=== PATIENT | female | born 1940 | race American Indian/Alaskan Native ===

== ENCOUNTER 2022-01-15 11:40 | Inpatient (IN) | payer MEDICARE ==
--- NOTE | 2022-01-15 13:00 | Cat Scan Report ---
CT HEAD WITHOUT CONTRAST INDICATION / CLINICAL INFORMATION: blunt head injury. TECHNIQUE: All CT scans at this location are performed using CT dose reduction for ALARA by means of automated e xposure control. COMPARISON: None available. FINDINGS: HEMORRHAGE: No evidence of intracranial hemorrhage or extra-axial fluid collection. EXTRA-AXIAL SPACES: Cortical sulci and sylvian fissures are enlarged reflecting a degree of parenchym al volume loss which is prominent even given the patient's age of 81 years. Basilar cisterns have an unremarkable appearance. VENTRICULAR SYSTEM: The third and lateral ventricles are enlarged out of proportion to the cortical s ulci. This probably reflects the presence of central greater than cortical atrophy. Profound temporal lobe atrophy is noted bilaterally (Duara grade 4). CEREBRAL PARENCHYMA: Extensive periventricular, deep white matter and subcortical white matter lucenc y is observed. This is probably secondary to advanced microvascular ischemic change. There is no yazmin cation of recent infarction. There is a remote small deep infarction in the medial aspect of the left thalamus. Bilateral physiological basal ganglia calcifications are incidentally noted. MIDLINE SHIFT OR HERNIATION: There is no mass effect. CEREBELLUM / BRAINSTEM: Brainstem and cerebellum have an unremarkable appearance. MIDLINE STRUCTURES:No abnormalities of the pituitary gland or pineal region are observed INTRACRANIAL VESSELS:Calcified atherosclerotic plaque is present along the course of the cavernous se gments of both internal carotid arteries. Similar findings are seen at the distal vertebral arteries. CRANIOCERVICAL JUNCTION:No abnormality ORBITS: visualized portions of the orbits have an unremarkable appearance. SOFT TISSUES of HEAD: No significant abnormality. CALVARIUM: Evaluation of bone windows reveals no abnormalities. PARANASAL SINUSES / MASTOID AIR CELLS: Paranasal sinuses are free from inflammatory mucosal disease. Mastoid air cells are normally pneumatized. IMPRESSION: 1. Prominent central greater than cortical atrophy and advanced microvascular ischemic change. 2. No acute intracranial abnormality. CT CERVICAL SPINE WITHOUT CONTRAST INDICATION / CLINICAL INFORMATION: blunt head injury. TECHNIQUE: Axial CT images were obtained through the cervical spine. Sagittal and coronal reformatted images wer e produced. All CT scans at this location are performed using CT dose reduction for ALARA by means of automated exposure control. COMPARISON: None available. FINDINGS: POSTOPERATIVE CHANGE:none ALIGNMENT: Patient's head is tilted towards the left. Loss of the normal cervical lordosis is noted. No additional abnormalities of alignment are identified. VERTEBRAE: No indication of fracture or bone destruction. DISC SPACES: Loss of disc height is a prominent finding at the C4-5, C5-6, C6-7 and C7-T1 levels. DEGENERATIVE CHANGES: In addition to widespread disc desiccation there is multifocal uncovertebral ar thropathy. Mild facet arthritic changes are observed at the C6-7 level on the left. Uncovertebral art hropathy contributes to widespread neuroforaminal stenosis throughout cervical region. Central spinal canal appears to be adequately maintained. CRANIOCERVICAL JUNCTION:No significant abnormality. Incidental note is made of failure of fusion of t he posterior arch of C1 vertebrae. This is of no clinical concern. SPINAL CANAL: Central spinal canal is adequately maintained throughout. PARASPINAL SOFT TISSUES: No significant abnormality. ADDITIONAL FINDINGS: Calcification of the nuchal ligament is observed. This is most pronounced at the level of the C5-C6 and C7 spinous processes. LUNG APICES: No significant abnormality of visualized lungs. IMPRESSION: 1. Widespread uncovertebral arthropathy and disc desiccation with associated bilateral neuroforaminal stenosis. 2. No indication of central canal stenosis. 3. No indication of fracture or traumatic subluxation. Signer Name: Ronak Churchill MD Signed: 01/15/2022 12:55 PM Workstation Name: [id number]
[2022-01-15 13:28] LABS: Basophils % (Auto) 0.4 % (0.0-1.8); Eosinophils % (Auto) 0.1 % (0.0-4.3); Hematocrit 36.5 % (30.3-42.9); Hemoglobin 11.9 gm/dl (10.1-14.3); Lymphocytes # (Auto) 1.1 K/mm3 (1.2-5.4); Lymphocytes % (Auto) 11.1 % (13.4-35.0); Mean Corpuscular HGB Conc 33 % (30-34); Mean Corpuscular Volume 84 fl (79-97); Monocytes # (Auto) 0.8 K/mm3 (0.0-0.8); Monocytes % (Auto) 7.7 % (0.0-7.3); Platelet Count 406 K/mm3 (140-440); Red Blood Count 4.33 M/mm3 (3.65-5.03); Red Cell Distribution Width 14.6 % (13.2-15.2)
--- NOTE | 2022-01-15 13:58 | XRay Report ---
BILATERAL HIP 3 VIEW(S) INDICATION / CLINICAL INFORMATION: fall, pain COMPARISON: None available. FINDINGS: BONES / JOINT(S): No acute fracture or subluxation. Moderately advanced right and mild left hip degen erative arthrosis SOFT TISSUES: No significant abnormality. ADDITIONAL FINDINGS: None. IMPRESSION: 1. Bilateral hip osteoarthrosis. Signer Name: Gabriel Will MD Signed: 01/15/2022 1:53 PM Workstation Name: [email or web address]
--- NOTE | 2022-01-15 14:01 | XRay Report ---
CHEST 1 VIEW INDICATION / CLINICAL INFORMATION: dizziness. COMPARISON: None available. FINDINGS: SUPPORT DEVICES: None. HEART / MEDIASTINUM: No significant abnormality. LUNGS / PLEURA: No significant pulmonary or pleural abnormality. No pneumothorax. ADDITIONAL FINDINGS: No significant additional findings. IMPRESSION: 1. No acute findings. Signer Name: Gabriel Will MD Signed: 01/15/2022 1:57 PM Workstation Name: [id number]
[2022-01-15 14:11] LABS: Bilirubin,Urine NEG (Negative); Blood,Urine SM (Negative); Color,Urine Yellow (Yellow); Mucus,Urine FEW /HPF; Urobilinogen,Urine < 2.0 mg/dL (<2.0); WBC,Urine < 1.0 /HPF (0.0-6.0)
[2022-01-15 16:13] LABS: Alanine Aminotransferase 24 units/L (7-56); Albumin 4.1 g/dL (3.9-5); Blood Urea Nitrogen 13 mg/dL (7-17); Calcium 9.3 mg/dL (8.4-10.2); Hemolysis Index 6
[2022-01-15 16:17] LABS: BUN/Creatinine Ratio 19
[2022-01-15] MEDS ORDERED: ASPIRIN 81 MG TAB CHEW PO ONE (16:33)
[2022-01-15] MEDS ORDERED: SODIUM CHLORIDE 0.9% 1000 ML 1,000 ML IV ONE (16:34)
[2022-01-15 16:42] LABS: Chol/HDL Ratio 2.86 %; HDL Cholesterol 44 mg/dL (40-59); LDL Cholesterol,Direct 63 mg/dL (50-130)
[2022-01-15] MEDS ORDERED: HEPARIN 10,000 UNITS/10 ML VIAL IV PRN (17:22)
[2022-01-15] MEDS ORDERED: HEPARIN 10,000 UNITS/10 ML VIAL IV ONE (17:22)
--- NOTE | 2022-01-15 17:58 | Emergency Department Report ---
ED General Adult HPI - General Chief complaint: Fall Stated complaint: FALL Time Seen by Provider: 01/15/22 12:02 Source: EMS Mode of arrival: Stretcher Limitations: Altered Mental Status - History of Present Illness Initial comments: patient presents from [place] 10/01 being found on the ground. Unclear how patient ended up there or if she fell. Patient is pleasantly demented and is AAO x 1 (to person; here and @ baseline). Patient states she does not know how she fell; denies any MANZANO, dizziness, CP, SOB, abd pain, back pain, numbness, weakness, pain in her extremities. Patient is not a reliable historian. Severity scale (0 -10): 0 - Related Data Allergies Allergy/AdvReac Type Severity Reaction Status Date / Time No Known Allergies Allergy Unverified 01/15/22 12:01 ED Review of Systems ROS: Stated complaint: FALL Other details as noted in HPI Comment: All other systems reviewed and negative Constitutional: denies: chills, fever ED Past Medical Hx - Past Medical History Hx Hypertension: Yes Hx Diabetes: Yes Hx Dementia: Yes - Social History Smoking Status: Never Smoker ED Physical Exam - General Limitations: Altered Mental Status General appearance: alert, in no apparent distress - Head Head exam: Present: atraumatic, normocephalic - Eye Eye exam: Present: PERRL, EOMI - ENT ENT exam: Present: mucous membranes moist, other (airway patent) - Neck Neck exam: Present: other (painless full ROM; non tender; unable to clear by NEXUS crtieria 10/01 AMS) - Respiratory Respiratory exam: Present: other (good air entry, nml I:E, CTAB, no use of RAYMOND) - GI/Abdominal GI/Abdominal exam: Present: soft, normal bowel sounds. Absent: distended, tenderness - Extremities Exam Extremities exam: Present: other (full ROM without tenderness, ecchymosis or edema in all 4 extremities; pelvis stable) - Back Exam Back exam: Present: full ROM. Absent: tenderness - Neurological Exam Neurological exam: Present: alert, CN II-XII intact, other (GCS 14/15 ([id number])). Absent: motor sensory deficit - Skin Skin exam: Present: warm, normal color ED Course Vital Signs 01/15/22 01/15/22 01/15/22 12:00 12:03 12:15 Temperature 98.6 F Pulse Rate 102 H 108 H 94 H Respiratory 16 11 L 22 Rate Blood Pressure 138/77 Blood Pressure 132/82 [Right] O2 Sat by Pulse 98 Oximetry 01/15/22 01/15/22 01/15/22 12:18 12:19 13:46 Temperature 98.9 F Pulse Rate 99 H Respiratory 18 18 Rate Blood Pressure 154/77 Blood Pressure 138/77 [Right] O2 Sat by Pulse 99 100 Oximetry 01/15/22 01/15/22 01/15/22 14:01 14:15 14:31 Temperature Pulse Rate 97 H 77 76 Respiratory 14 17 15 Rate Blood Pressure 139/72 132/81 142/75 Blood Pressure [Right] O2 Sat by Pulse 97 97 98 Oximetry 01/15/22 01/15/22 01/15/22 14:45 15:01 15:15 Temperature Pulse Rate 83 84 82 Respiratory 19 19 18 Rate Blood Pressure 141/79 146/84 158/78 Blood Pressure [Right] O2 Sat by Pulse 99 98 98 Oximetry 01/15/22 01/15/22 01/15/22 15:31 15:45 16:15 Temperature Pulse Rate 85 89 87 Respiratory 18 17 18 Rate Blood Pressure 152/84 157/87 155/76 Blood Pressure [Right] O2 Sat by Pulse 98 99 99 Oximetry 01/15/22 16:31 Temperature Pulse Rate 97 H Respiratory 13 Rate Blood Pressure 147/79 Blood Pressure [Right] O2 Sat by Pulse 98 Oximetry ED Medical Decision Making - Lab Data Result diagrams: 01/15/22 12:25 01/15/22 12:25 Laboratory Tests 01/15/22 01/15/22 01/15/22 12:25 12:25 Unknown WBC 10.3 RBC 4.33 Hgb 11.9 Hct 36.5 MCV 84 MCH 28 MCHC 33 RDW 14.6 Plt Count 406 Lymph % (Auto) 11.1 L [place] % (Auto) 7.7 H Eos % (Auto) 0.1 Baso % (Auto) 0.4 Lymph # (Auto) 1.1 L [place] # (Auto) 0.8 Eos # (Auto) 0.0 Baso # (Auto) 0.0 Seg Neutrophils % 80.7 H Seg Neutrophils # 8.3 H Sodium 141 Potassium 3.2 L Chloride 102.5 Carbon Dioxide 24 Anion Gap 18 BUN 13 Creatinine 0.7 Estimated GFR > 60 BUN/Creatinine Ratio 19 Glucose 117 H Calcium 9.3 Total Bilirubin 0.40 AST 106 H ALT 24 Alkaline Phosphatase 65 Total Creatine Kinase 3093 H Troponin T 1.160 H* Total Protein 6.5 Albumin 4.1 Albumin/Globulin Ratio 1.7 Triglycerides 78 Cholesterol 126 LDL Cholesterol Direct 63 HDL Cholesterol 44 Cholesterol/HDL Ratio 2.86 Urine Color Yellow Urine Turbidity Clear Urine pH 7.0 Ur Specific [place] 1.017 Urine Protein 30 mg/dl Urine Glucose (UA) Neg Urine Ketones 20 Urine Blood Sm Urine Nitrite Neg Urine Bilirubin Neg Urine Urobilinogen < 2.0 Ur Leukocyte Esterase Neg Urine WBC (Auto) < 1.0 Urine RBC (Auto) 4.0 Urine Mucus Few EKG: HR 96, SR, nml LA, narrow QRS, prolonged QTc to 536, no significant ST changes in contiguous leads CXR: no acute cardiopulmonary process XR hips bilat w AP pelvis: no fracture or dislocation CT head: no acute intracranial process CT C-spine: no fracture or subluxation. - Medical Decision Making Diff dz: - possibly 2/2 heat exhaustion. Elevated troponin likely 2/2 NSTEMI vs rhabdomyolysis (latter favored). Dr. Rivera (scrub nurse) consulted. Recommends heparin gtt for now. Will see patient. Received heparin bolus then gtt, NS @ 125 ml/hr Critical care attestation.: If time is entered above; I have spent that time in minutes in the direct care of this critically ill patient, excluding procedure time. ED Disposition Clinical Impression: Elevated troponin, Fall Disposition: ADMITTED INPATIENT Is pt being admited?: Yes Does the pt Need Aspirin: No Condition: Stable Time of Disposition: 17:00 (Patient admitted to Dr. Puckett. Sign out was given by me to the admitting physician)
[2022-01-15] MEDS ORDERED: HEPARIN/ 0.45% NACL DRIP 25,000 UNIT/500 ML BAG IV SCH (18:00)
[2022-01-15 18:56] LABS: INR 0.97 (0.87-1.13)
[2022-01-15 18:57] LABS: Partial Thromboplastin Time 28.1 Sec. (24.2-36.6)
[2022-01-15] MEDS ORDERED: oxyCODONE /ACETAMINOPHEN 5-325MG TAB PO PRN (23:52)
[2022-01-15] MEDS ORDERED: METOCLOPRAMIDE 10 MG/2 ML INJ IV PRN (23:52)
[2022-01-15] MEDS ORDERED: ACETAMINOPHEN 325 MG TAB PO PRN (23:52)
[2022-01-15] MEDS ORDERED: ONDANSETRON 4 MG/2 ML INJ IV PRN (23:52)
[2022-01-15] MEDS ORDERED: MORPHINE 2 MG/1 ML INJ IV PRN (23:52)
[2022-01-16 02:53] LABS: Basophils # (Auto) 0.1 K/mm3 (0.0-0.1); Basophils % (Auto) 0.6 % (0.0-1.8); Eosinophils # (Auto) 0.1 K/mm3 (0.0-0.4); Eosinophils % (Auto) 0.7 % (0.0-4.3); Hematocrit 33.3 % (30.3-42.9); Hemoglobin 10.9 gm/dl (10.1-14.3); Lymphocytes # (Auto) 2.3 K/mm3 (1.2-5.4); Lymphocytes % (Auto) 23.7 % (13.4-35.0); Mean Corpuscular HGB Conc 33 % (30-34); Mean Corpuscular Volume 84 fl (79-97); Monocytes # (Auto) 0.9 K/mm3 (0.0-0.8); Monocytes % (Auto) 8.7 % (0.0-7.3); Platelet Count 358 K/mm3 (140-440); Red Blood Count 3.98 M/mm3 (3.65-5.03); Red Cell Distribution Width 14.7 % (13.2-15.2)
[2022-01-16 03:14] LABS: Alanine Aminotransferase 29 units/L (7-56); Albumin 3.5 g/dL (3.9-5); Blood Urea Nitrogen 11 mg/dL (7-17); Calcium 8.2 mg/dL (8.4-10.2); Hemolysis Index 1
[2022-01-16 03:22] LABS: BUN/Creatinine Ratio 18
[2022-01-16] MEDS ORDERED: POTASSIUM CHLORIDE ER 20 MEQ TAB PO ONE (04:01)
--- NOTE | 2022-01-16 06:38 | History and Physical Report ---
History of Present Illness Date of examination: 01/15/22 Date of admission: 01/15/22 Chief complaint: Ground-level fall few hours ago History of present illness: 81-year-old female with history of hypertension diabetes and early dementia was found on floor in the residential. Patient was sent from residential for evaluation of fall. No chest pain patient was screened for fractures and was negative. Patient being admitted for higher creatinine level with elevated troponin. ER physician started the patient on IV heparin for possible non- STEMI. CK was 3000 and troponin was appropriately elevated. Repeat CKs were ordered and heparin was discontinued. Patient being admitted for rhabdomyolysis and IV fluids. Generalized pain all over about 4-5 on a scale of 1-10. No chest pain. - Past Medical History --Hypertension: Yes --Diabetes: Yes --Dementia: Yes - surgical history -- unavailable - Social History --Smoking Status: Never Smoker - family history --unavailable Review of Systems ROS: Stated complaint: FALL Other details as noted in HPI Comment: All other systems reviewed and negative Constitutional: denies: chills, fever Medications and Allergies Allergies Allergy/AdvReac Type Severity Reaction Status Date / Time No Known Allergies Allergy Unverified 01/15/22 12:01 Active Meds: Active Medications Acetaminophen (Acetaminophen 325 Mg Tab) 650 mg PO Q4H PRN PRN Reason: Pain MILD(1-3)/Fever >100.5/MANZANO Famotidine (Famotidine 10 Mg Tab) 10 mg PO BID LEANNE Heparin Sodium (Porcine) (Heparin 10,000 Units/10 Ml Vial) 2,400 unit 40 unit/kg (2400 unit) IV Q6H PRN PRN Reason: Anti-Xa Assay < 0.1 units/ml Last Admin: 01/16/22 03:54 Dose: 2,400 unit Heparin Sodium/Sodium Chloride (Heparin/ 0.45% Nacl-25,000 Unit/500 Ml) 25,000 unit in 500 mls @ 16 mls/hr IV TITRATE LEANNE; Protocol Last Titration: 01/16/22 03:47 Dose: 950 units/hr, 19 mls/hr Sodium Chloride (Nacl 0.9% 1000 Ml) 1,000 mls @ 100 mls/hr IV DIRECT LEANNE Metoclopramide HCl (Metoclopramide 10 Mg/2 Ml Inj) 10 mg IV Q6H PRN PRN Reason: Nausea And Vomiting Morphine Sulfate (Morphine 2 Mg/1 Ml Inj) 2 mg IV Q4H PRN PRN Reason: Pain, Moderate (4-6) Ondansetron HCl (Ondansetron 4 Mg/2 Ml Inj) 4 mg IV Q8H PRN PRN Reason: Nausea And Vomiting Oxycodone/Acetaminophen (Oxycodone /Acetaminophen 5-325mg Tab) 1 tab PO Q6H PRN PRN Reason: Pain, Moderate (4-6) Potassium Chloride (Potassium Chloride Er 20 Meq Tab) 40 meq PO ONCE LEANNE Stop: 01/16/22 08:01 Sodium Chloride (Sodium Chloride 0.9% 10 Ml Flush Syringe) 10 ml IV BID LEANNE Sodium Chloride (Sodium Chloride 0.9% 10 Ml Flush Syringe) 10 ml IV PRN PRN PRN Reason: LINE FLUSH Exam - Constitutional Vitals: Temp Pulse Resp BP Pulse Ox 98.9 F 78 18 138/78 100 01/15/22 12:18 01/16/22 04:00 01/16/22 04:00 01/16/22 04:00 01/16/22 04:00 General appearance: Present: no acute distress, well-nourished - EENT Eyes: Present: PERRL ENT: hearing intact, clear oral mucosa - Neck Neck: Present: supple, normal ROM - Respiratory Respiratory effort: normal Respiratory: bilateral: CTA - Cardiovascular Heart rate: 98 Rhythm: regular Heart Sounds: Present: S1 & S2. Absent: rub, click - Extremities Extremities: pulses symmetrical, No edema Peripheral Pulses: within normal limits - Abdominal General gastrointestinal: Present: soft, non-tender, non-distended, normal bowel sounds Female genitourinary: Present: normal - Integumentary Integumentary: Present: clear, warm, dry - Musculoskeletal Musculoskeletal: gait normal, strength equal bilaterally - Psychiatric Psychiatric: appropriate mood/affect, intact judgment & insight - Neurologic Neurologic: CNII-XII intact, moves all extremities - Allied Health Allied health notes reviewed: nursing, case management HEART Score - HEART Score History: Slightly suspicious Age: > 65 Risk factors: 1-2 risk factors Troponin: Troponin T 0.792 ng/mL (0.00-0.029) H* D 01/16/22 00:11 Troponin: 1-3x normal limit - Critical Actions Critical Actions: 0-3 pts:0.9-1.7%risk of adverse cardiac event.Candidate for discharge Results - Labs CBC & Chem 7: 01/16/22 02:17 01/16/22 02:17 Labs: Laboratory Last Values WBC 9.8 K/mm3 (4.5-11.0) 01/16/22 02:17 RBC 3.98 M/mm3 (3.65-5.03) 01/16/22 02:17 Hgb 10.9 gm/dl (10.1-14.3) 01/16/22 02:17 Hct 33.3 % (30.3-42.9) 01/16/22 02:17 MCV 84 fl (79-97) 01/16/22 02:17 MCH 27 pg (28-32) L 01/16/22 02:17 MCHC 33 % (30-34) 01/16/22 02:17 RDW 14.7 % (13.2-15.2) 01/16/22 02:17 Plt Count 358 K/mm3 (140-440) 01/16/22 02:17 Lymph % (Auto) 23.7 % (13.4-35.0) 01/16/22 02:17 Price % (Auto) 8.7 % (0.0-7.3) H 01/16/22 02:17 Eos % (Auto) 0.7 % (0.0-4.3) 01/16/22 02:17 Baso % (Auto) 0.6 % (0.0-1.8) 01/16/22 02:17 Lymph # (Auto) 2.3 K/mm3 (1.2-5.4) 01/16/22 02:17 Price # (Auto) 0.9 K/mm3 (0.0-0.8) H 01/16/22 02:17 Eos # (Auto) 0.1 K/mm3 (0.0-0.4) 01/16/22 02:17 Baso # (Auto) 0.1 K/mm3 (0.0-0.1) 01/16/22 02:17 Seg Neutrophils % 66.3 % (40.0-70.0) 01/16/22 02:17 Seg Neutrophils # 6.5 K/mm3 (1.8-7.7) 01/16/22 02:17 PT 13.9 Sec. (12.2-14.9) 01/15/22 18:14 INR 0.97 (0.87-1.13) 01/15/22 18:14 APTT 28.1 Sec. (24.2-36.6) 01/15/22 18:14 Heparin Anti-Xa Level < 0.10 U.I./ml (0.3-0.7) L 01/16/22 02:17 Sodium 144 mmol/L (137-145) 01/16/22 02:17 Potassium 2.8 mmol/L (3.6-5.0) L* 01/16/22 02:17 Chloride 106.2 mmol/L (98-107) 01/16/22 02:17 Carbon Dioxide 24 mmol/L (22-30) 01/16/22 02:17 Anion Gap 17 mmol/L 01/16/22 02:17 BUN 11 mg/dL (7-17) 01/16/22 02:17 Creatinine 0.6 mg/dL (0.6-1.2) 01/16/22 02:17 Estimated GFR > 60 ml/min 01/16/22 02:17 BUN/Creatinine Ratio 18 % 01/16/22 02:17 Glucose 82 mg/dL (65-100) 01/16/22 02:17 Calcium 8.2 mg/dL (8.4-10.2) L 01/16/22 02:17 Total Bilirubin 0.30 mg/dL (0.1-1.2) 01/16/22 02:17 AST 111 units/L (5-40) H 01/16/22 02:17 ALT 29 units/L (7-56) 01/16/22 02:17 Alkaline Phosphatase 54 units/L (35-129) 01/16/22 02:17 Total Creatine Kinase 3317 units/L (30-135) H 01/16/22 00:11 CK-MB (CK-2) 51.0 ng/mL (0.0-4.0) H 01/16/22 00:11 CK-MB (CK-2) Rel Index 1.5 (0-4) 01/16/22 00:11 Troponin T 0.792 ng/mL (0.00-0.029) H* D 01/16/22 00:11 Total Protein 6.1 g/dL (6.3-8.2) L 01/16/22 02:17 Albumin 3.5 g/dL (3.9-5) L 01/16/22 02:17 Albumin/Globulin Ratio 1.3 % 01/16/22 02:17 Triglycerides 78 mg/dL (2-149) 01/15/22 12:25 Cholesterol 126 mg/dL (50-199) 01/15/22 12:25 LDL Cholesterol Direct 63 mg/dL (50-130) 01/15/22 12:25 HDL Cholesterol 44 mg/dL (40-59) 01/15/22 12:25 Cholesterol/HDL Ratio 2.86 % 01/15/22 12:25 Urine Color Yellow (Yellow) 01/15/22 Unknown Urine Turbidity Clear (Clear) 01/15/22 Unknown Urine pH 7.0 (5.0-7.0) 01/15/22 Unknown Ur Specific [place] 1.017 (1.003-1.030) 01/15/22 Unknown Urine Protein 30 mg/dl mg/dL (Negative) 01/15/22 Unknown Urine Glucose (UA) Neg mg/dL (Negative) 01/15/22 Unknown Urine Ketones 20 mg/dL (Negative) 01/15/22 Unknown Urine Blood Sm (Negative) 01/15/22 Unknown Urine Nitrite Neg (Negative) 01/15/22 Unknown Urine Bilirubin Neg (Negative) 01/15/22 Unknown Urine Urobilinogen < 2.0 mg/dL (<2.0) 01/15/22 Unknown Ur Leukocyte Esterase Neg (Negative) 01/15/22 Unknown Urine WBC (Auto) < 1.0 /HPF (0.0-6.0) 01/15/22 Unknown Urine RBC (Auto) 4.0 /HPF (0.0-6.0) 01/15/22 Unknown Urine Mucus Few /HPF 01/15/22 Unknown Short CBC 01/15/22 01/16/22 Range/Units 12:25 02:17 WBC 10.3 9.8 (4.5-11.0) K/mm3 Hgb 11.9 10.9 (10.1-14.3) gm/dl Hct 36.5 33.3 (30.3-42.9) % Plt Count 406 358 (140-440) K/mm3 BMP 01/15/22 01/16/22 12:25 02:17 Sodium 141 144 Potassium 3.2 L 2.8 L* Chloride 102.5 106.2 Carbon Dioxide 24 24 BUN 13 11 Creatinine 0.7 0.6 Glucose 117 H 82 Calcium 9.3 8.2 L Cardiac Enzymes 01/15/22 01/16/22 01/16/22 Range/Units 12:25 00:11 00:11 Total Creatine Kinase 3093 H 3317 H (30-135) units/L CK-MB (CK-2) 51.0 H (0.0-4.0) ng/mL Troponin T 1.160 H* 0.792 H* D (0.00-0.029) ng/mL Liver Function 01/15/22 01/16/22 Range/Units 12:25 02:17 Total Bilirubin 0.40 0.30 (0.1-1.2) mg/dL AST 106 H 111 H (5-40) units/L ALT 24 29 (7-56) units/L Alkaline Phosphatase 65 54 (35-129) units/L Albumin 4.1 3.5 L (3.9-5) g/dL Urine 01/15/22 Range/Units Unknown Urine Color Yellow (Yellow) Urine pH 7.0 (5.0-7.0) Ur Specific [place] 1.017 (1.003-1.030) Urine Protein 30 mg/dl (Negative) mg/dL Urine Glucose (UA) Neg (Negative) mg/dL [place]/IV: Voiding Method Diaper Assessment and Plan Advance Directives: Yes (Full code) VTE prophylaxis?: Chemical Plan of care discussed with patient/family: Yes - Patient Problems (1) Rhabdomyolysis Current Visit: Yes Status: Acute Qualifiers: Rhabdomyolysis type: traumatic Plan to address problem: Patient has moderate rhabdomyolysis IV fluids for now Monitor creatinine kinase CK-MB worsening proportion to the elevated creatinine No acute heart injury No need for Lexiscan Elevation of troponin is consistent with elevated CK (2) Hypokalemia Current Visit: Yes Status: Acute Plan to address problem: Supplemented (3) Elevated troponin Current Visit: Yes Status: Acute Plan to address problem: Secondary to elevated creatinine kinase CK-MB is low--- 1.5% Myocardial injury ruled out No need for Lexiscan or cardiology consult (4) Status post fall Current Visit: Yes Status: Acute Plan to address problem: Physical therapy and Occupational Therapy (5) DVT prophylaxis Current Visit: Yes Status: Acute Plan to address problem: On heparin and GI prophylax Heparin drip was discontinued (6) Advance care planning Current Visit: Yes Status: Acute Plan to address problem: Disease education conducted, care plan discussed, diagnosis discussed. Patient is full code. Patient and family acknowledged understanding and agreement with care plan. +30 minutes.
[2022-01-16] MEDS ORDERED: POTASSIUM CHLORIDE ER 20 MEQ TAB PO SCH (08:00)
[2022-01-16 08:10] LABS: Creatine Kinase MB 35.6 ng/mL (0.0-4.0)
[2022-01-16] MEDS: POTASSIUM CHLORIDE 10 MEQ 10 MEQ/100 ML BAG IV SCH ×8 (08:16→22:52)
[2022-01-16] MEDS: POTASSIUM CHLORIDE ER 20 MEQ TAB PO SCH ×2 (08:17→15:47)
[2022-01-16] MEDS ORDERED: FAMOTIDINE 20 MG TAB PO SCH (10:00)
[2022-01-16] MEDS ORDERED: HEPARIN 5,000 UNIT/1 ML VIAL SUB-Q SCH (10:00)
--- NOTE | 2022-01-16 10:07 | Electrocardiograph Report ---
[facility] Test Date: 2022-01-15 Test Time: 12:06:34 Pat Name: MABEL ENRIQUE Department: Room: A472 Gender: F Medical Or Surgical Instrument Maker: [id number] : [id number] Requested By: YOLA DUMONT Order Number: [id number] Reading MD: Zach Rivera Measurements Intervals [place] Rate: 98 P: 82 MN: 162 QRS: 27 QRSD: 97 T: 56 QT: 419 QTc: 536 Interpretive Statements Sinus rhythm Prolonged QT interval No previous ECG available for comparison Electronically Signed On 01-16-2022 10:07:12 EDT by Zach Rivera
[2022-01-16] MEDS: FAMOTIDINE 10 MG TAB PO SCH ×2 (11:14→21:28)
--- NOTE | 2022-01-16 12:10 | Progress Note ---
Assessment and Plan Assessment and plan: #Rhabdomyolysis #Elevated troponin Creatine kinase 3317: Troponin 1.16--> 0.72 Elevated troponin likely secondary to rhabdomyolysis Continue IV fluids in the setting of rhabdomyolysis. Patient currently has no need for Lexiscan or cardiac consult. Continue to monitor #Ground-level fall #Contusion of left lower lip Unremarkable imaging of pelvis #Hypokalemia Potassium 2.8 Repleted. Continue to monitor with repeat labs. #Advanced care planning -Disease education conducted, care plan discussed, diagnoses discussed, prognosis discussed, and patient acknowledges understanding with care plan -Time: +30 min #Discharge planning - Patient is pending PT/OT evaluation - Case management has been made aware. Disposition Plan: Continue medical management Total Time Spent with Patient (Minutes): 45 minutes History Interval history: No acute events overnight. Hospitalist Physical - Constitutional Vitals: Temp Pulse Resp BP Pulse Ox 98.0 F 83 18 150/82 96 01/16/22 08:40 01/16/22 08:40 01/16/22 08:40 01/16/22 08:40 01/16/22 08:40 General appearance: Present: no acute distress, well-nourished, other (Dementia baseline) - EENT Eyes: Present: PERRL, EOM intact ENT: hearing intact, clear oral mucosa, dentition normal - Neck Neck: Present: supple, normal ROM - Respiratory Respiratory effort: normal Respiratory: bilateral: CTA - Cardiovascular Rhythm: regular Heart Sounds: Present: S1 & S2 - Extremities Extremities: no ischemia, pulses intact, pulses symmetrical, No edema, normal temperature, normal color Peripheral Pulses: within normal limits - Abdominal General gastrointestinal: soft, non-tender, non-distended, normal bowel sounds - Integumentary Integumentary: Present: clear, warm, dry - Psychiatric Psychiatric: appropriate mood/affect, other (Dementia at baseline) - Neurologic Neurologic: CNII-XII intact - Allied Health Allied health notes reviewed: nursing HEART Score - HEART Score Age: > 65 Risk factors: 1-2 risk factors Troponin: Troponin T 0.725 ng/mL (0.00-0.029) H* 01/16/22 05:40 Troponin: 1-3x normal limit - Critical Actions Critical Actions: 0-3 pts:0.9-1.7%risk of adverse cardiac event.Candidate for discharge Results - Labs CBC & Chem 7: 01/16/22 02:17 01/16/22 02:17 Labs: Laboratory Last Values WBC 9.8 K/mm3 (4.5-11.0) 01/16/22 02:17 RBC 3.98 M/mm3 (3.65-5.03) 01/16/22 02:17 Hgb 10.9 gm/dl (10.1-14.3) 01/16/22 02:17 Hct 33.3 % (30.3-42.9) 01/16/22 02:17 MCV 84 fl (79-97) 01/16/22 02:17 MCH 27 pg (28-32) L 01/16/22 02:17 MCHC 33 % (30-34) 01/16/22 02:17 RDW 14.7 % (13.2-15.2) 01/16/22 02:17 Plt Count 358 K/mm3 (140-440) 01/16/22 02:17 Lymph % (Auto) 23.7 % (13.4-35.0) 01/16/22 02:17 [place] % (Auto) 8.7 % (0.0-7.3) H 01/16/22 02:17 Eos % (Auto) 0.7 % (0.0-4.3) 01/16/22 02:17 Baso % (Auto) 0.6 % (0.0-1.8) 01/16/22 02:17 Lymph # (Auto) 2.3 K/mm3 (1.2-5.4) 01/16/22 02:17 [place] # (Auto) 0.9 K/mm3 (0.0-0.8) H 01/16/22 02:17 Eos # (Auto) 0.1 K/mm3 (0.0-0.4) 01/16/22 02:17 Baso # (Auto) 0.1 K/mm3 (0.0-0.1) 01/16/22 02:17 Seg Neutrophils % 66.3 % (40.0-70.0) 01/16/22 02:17 Seg Neutrophils # 6.5 K/mm3 (1.8-7.7) 01/16/22 02:17 PT 13.9 Sec. (12.2-14.9) 01/15/22 18:14 INR 0.97 (0.87-1.13) 01/15/22 18:14 APTT 28.1 Sec. (24.2-36.6) 01/15/22 18:14 Heparin Anti-Xa Level 0.38 U.I./ml (0.3-0.7) 01/16/22 10:20 Sodium 144 mmol/L (137-145) 01/16/22 02:17 Potassium 2.8 mmol/L (3.6-5.0) L* 01/16/22 02:17 Chloride 106.2 mmol/L (98-107) 01/16/22 02:17 Carbon Dioxide 24 mmol/L (22-30) 01/16/22 02:17 Anion Gap 17 mmol/L 01/16/22 02:17 BUN 11 mg/dL (7-17) 01/16/22 02:17 Creatinine 0.6 mg/dL (0.6-1.2) 01/16/22 02:17 Estimated GFR > 60 ml/min 01/16/22 02:17 BUN/Creatinine Ratio 18 % 01/16/22 02:17 Glucose 82 mg/dL (65-100) 01/16/22 02:17 Calcium 8.2 mg/dL (8.4-10.2) L 01/16/22 02:17 Total Bilirubin 0.30 mg/dL (0.1-1.2) 01/16/22 02:17 AST 111 units/L (5-40) H 01/16/22 02:17 ALT 29 units/L (7-56) 01/16/22 02:17 Alkaline Phosphatase 54 units/L (35-129) 01/16/22 02:17 Total Creatine Kinase 2941 units/L (30-135) H 01/16/22 05:40 CK-MB (CK-2) 35.6 ng/mL (0.0-4.0) H 01/16/22 05:40 CK-MB (CK-2) Rel Index 1.2 (0-4) 01/16/22 05:40 Troponin T 0.725 ng/mL (0.00-0.029) H* 01/16/22 05:40 Total Protein 6.1 g/dL (6.3-8.2) L 01/16/22 02:17 Albumin 3.5 g/dL (3.9-5) L 01/16/22 02:17 Albumin/Globulin Ratio 1.3 % 01/16/22 02:17 Triglycerides 78 mg/dL (2-149) 01/15/22 12:25 Cholesterol 126 mg/dL (50-199) 01/15/22 12:25 LDL Cholesterol Direct 63 mg/dL (50-130) 01/15/22 12:25 HDL Cholesterol 44 mg/dL (40-59) 01/15/22 12:25 Cholesterol/HDL Ratio 2.86 % 01/15/22 12:25 Urine Color Yellow (Yellow) 01/15/22 Unknown Urine Turbidity Clear (Clear) 01/15/22 Unknown Urine pH 7.0 (5.0-7.0) 01/15/22 Unknown Ur Specific [place] 1.017 (1.003-1.030) 01/15/22 Unknown Urine Protein 30 mg/dl mg/dL (Negative) 01/15/22 Unknown Urine Glucose (UA) Neg mg/dL (Negative) 01/15/22 Unknown Urine Ketones 20 mg/dL (Negative) 01/15/22 Unknown Urine Blood Sm (Negative) 01/15/22 Unknown Urine Nitrite Neg (Negative) 01/15/22 Unknown Urine Bilirubin Neg (Negative) 01/15/22 Unknown Urine Urobilinogen < 2.0 mg/dL (<2.0) 01/15/22 Unknown Ur Leukocyte Esterase Neg (Negative) 01/15/22 Unknown Urine WBC (Auto) < 1.0 /HPF (0.0-6.0) 01/15/22 Unknown Urine RBC (Auto) 4.0 /HPF (0.0-6.0) 01/15/22 Unknown Urine Mucus Few /HPF 01/15/22 Unknown [place]/IV: Voiding Method Diaper Active Medications - Current Medications Current Medications: Generic Name Dose Route Start Last Admin Trade Name Freq PRN Reason Stop Dose Admin Acetaminophen 650 mg 01/15/22 23:52 Acetaminophen 325 Mg Tab PO Q4H PRN Pain MILD(1-3)/Fever >100.5/MANZANO Famotidine 10 mg 01/16/22 10:00 01/16/22 11:14 Famotidine 10 Mg Tab PO 10 mg BID LEANNE Administration Heparin Sodium (Porcine) 2,400 unit 01/15/22 17:22 01/16/22 03:54 Heparin 10,000 Units/10 Ml Vial 40 unit/kg (2400 unit) 2,400 unit IV Administration Q6H PRN Anti-Xa Assay < 0.1 units/ml Sodium Chloride 1,000 mls @ 100 mls/hr 01/15/22 23:45 Nacl 0.9% 1000 Ml IV DIRECT LEANNE Metoclopramide HCl 10 mg 01/15/22 23:52 Metoclopramide 10 Mg/2 Ml Inj IV Q6H PRN Nausea And Vomiting Morphine Sulfate 2 mg 01/15/22 23:52 Morphine 2 Mg/1 Ml Inj IV Q4H PRN Pain, Moderate (4-6) Ondansetron HCl 4 mg 01/15/22 23:52 Ondansetron 4 Mg/2 Ml Inj IV Q8H PRN Nausea And Vomiting Oxycodone/Acetaminophen 1 tab 01/15/22 23:52 Oxycodone /Acetaminophen 5-325mg Tab PO Q6H PRN Pain, Moderate (4-6) Sodium Chloride 10 ml 01/16/22 10:00 01/16/22 11:14 Sodium Chloride 0.9% 10 Ml Flush Syringe IV 10 ml BID LEANNE Administration Sodium Chloride 10 ml 01/15/22 23:52 Sodium Chloride 0.9% 10 Ml Flush Syringe IV PRN PRN LINE FLUSH
[2022-01-16 16:13] LABS: Creatine Kinase MB 19.2 ng/mL (0.0-4.0)
[2022-01-16 16:14] LABS: Blood Urea Nitrogen 10 mg/dL (7-17); Calcium 7.9 mg/dL (8.4-10.2); Hemolysis Index 67
[2022-01-16 16:15] LABS: BUN/Creatinine Ratio 17
[2022-01-17] MEDS: SODIUM CHLORIDE 0.9% 1000 ML 1,000 ML IV SCH ×2 (05:37→16:51)
[2022-01-17] MEDS ORDERED: CALCIUM CHLORIDE 1,000 MG in SODIUM CHLORIDE 0.9% 100 ML IV ONE (06:17)
--- NOTE | 2022-01-17 06:36 | Progress Note ---
Assessment and Plan Assessment and plan: #Rhabdomyolysisimproving #Elevated troponinimproving Creatine kinase 3317: Troponin 1.16--> 0.72 Elevated troponin likely secondary to rhabdomyolysis Continue IV fluids in the setting of rhabdomyolysis. Patient currently has no need for Lexiscan or cardiac consult. Continue to monitor #Ground-level fall #Contusion of left lower lip Unremarkable imaging of pelvis Physical therapy recommending rolling walker and SHELTER if patient has 24-hour care #Hypokalemiaresolved Potassium 2.8--> 3.9 Repleted. Continue to monitor with repeat labs. #Mild protein caloric malnutrition Albumin 3.5 Starting dietary supplementation #Advanced care planning -Disease education conducted, care plan discussed, diagnoses discussed, prognosis discussed, and patient acknowledges understanding with care plan -Time: +30 min #Discharge planning - Patient is pending additional 24 hours of improvement of rhabdomyolysis and co ronavirus PCR prior to return to retirement - Case management has been made aware. - Planning discharge for 01/18/2022 Disposition Plan: Pending discharge home tomorrow Total Time Spent with Patient (Minutes): 30 minutes History Interval history: No acute events overnight. Hospitalist Physical - Constitutional Vitals: Temp Pulse Resp BP Pulse Ox 98.8 F 82 20 143/77 97 01/17/22 00:31 01/17/22 00:31 01/17/22 00:31 01/17/22 00:31 01/17/22 00:31 General appearance: Present: no acute distress, well-nourished, other (Dementia baseline) - EENT Eyes: Present: PERRL, EOM intact ENT: hearing intact, clear oral mucosa, dentition normal - Neck Neck: Present: supple, normal ROM - Respiratory Respiratory effort: normal Respiratory: bilateral: CTA - Cardiovascular Rhythm: regular Heart Sounds: Present: S1 & S2 - Extremities Extremities: no ischemia, pulses intact, pulses symmetrical, No edema, normal temperature, normal color Peripheral Pulses: within normal limits - Abdominal General gastrointestinal: soft, non-tender, non-distended, normal bowel sounds - Integumentary Integumentary: Present: clear, warm, dry - Psychiatric Psychiatric: appropriate mood/affect, cooperative, other (Baseline dementia) - Neurologic Neurologic: CNII-XII intact - Allied Health Allied health notes reviewed: nursing HEART Score - HEART Score Age: > 65 Risk factors: 1-2 risk factors Troponin: Troponin T 0.460 ng/mL (0.00-0.029) H* D 01/16/22 14:54 Troponin: 1-3x normal limit - Critical Actions Critical Actions: 0-3 pts:0.9-1.7%risk of adverse cardiac event.Candidate for discharge Results - Labs CBC & Chem 7: 01/17/22 05:25 01/17/22 05:58 Labs: Laboratory Last Values WBC 9.8 K/mm3 (4.5-11.0) 01/16/22 02:17 RBC 3.98 M/mm3 (3.65-5.03) 01/16/22 02:17 Hgb 10.9 gm/dl (10.1-14.3) 01/16/22 02:17 Hct 33.3 % (30.3-42.9) 01/16/22 02:17 MCV 84 fl (79-97) 01/16/22 02:17 MCH 27 pg (28-32) L 01/16/22 02:17 MCHC 33 % (30-34) 01/16/22 02:17 RDW 14.7 % (13.2-15.2) 01/16/22 02:17 Plt Count 358 K/mm3 (140-440) 01/16/22 02:17 Lymph % (Auto) 23.7 % (13.4-35.0) 01/16/22 02:17 [place] % (Auto) 8.7 % (0.0-7.3) H 01/16/22 02:17 Eos % (Auto) 0.7 % (0.0-4.3) 01/16/22 02:17 Baso % (Auto) 0.6 % (0.0-1.8) 01/16/22 02:17 Lymph # (Auto) 2.3 K/mm3 (1.2-5.4) 01/16/22 02:17 [place] # (Auto) 0.9 K/mm3 (0.0-0.8) H 01/16/22 02:17 Eos # (Auto) 0.1 K/mm3 (0.0-0.4) 01/16/22 02:17 Baso # (Auto) 0.1 K/mm3 (0.0-0.1) 01/16/22 02:17 Seg Neutrophils % 66.3 % (40.0-70.0) 01/16/22 02:17 Seg Neutrophils # 6.5 K/mm3 (1.8-7.7) 01/16/22 02:17 PT 13.9 Sec. (12.2-14.9) 01/15/22 18:14 INR 0.97 (0.87-1.13) 01/15/22 18:14 APTT 28.1 Sec. (24.2-36.6) 01/15/22 18:14 Heparin Anti-Xa Level 0.38 U.I./ml (0.3-0.7) 01/16/22 10:20 Sodium 141 mmol/L (137-145) 01/16/22 14:54 Potassium 3.9 mmol/L (3.6-5.0) D 01/16/22 14:54 Chloride 106.9 mmol/L (98-107) 01/16/22 14:54 Carbon Dioxide 24 mmol/L (22-30) 01/16/22 14:54 Anion Gap 14 mmol/L 01/16/22 14:54 BUN 10 mg/dL (7-17) 01/16/22 14:54 Creatinine 0.6 mg/dL (0.6-1.2) 01/16/22 14:54 Estimated GFR > 60 ml/min 01/16/22 14:54 BUN/Creatinine Ratio 17 % 01/16/22 14:54 Glucose 154 mg/dL (65-100) H 01/16/22 14:54 Calcium 7.9 mg/dL (8.4-10.2) L 01/16/22 14:54 Total Bilirubin 0.30 mg/dL (0.1-1.2) 01/16/22 02:17 AST 111 units/L (5-40) H 01/16/22 02:17 ALT 29 units/L (7-56) 01/16/22 02:17 Alkaline Phosphatase 54 units/L (35-129) 01/16/22 02:17 Total Creatine Kinase 2689 units/L (30-135) H 01/16/22 14:54 CK-MB (CK-2) 19.2 ng/mL (0.0-4.0) H 01/16/22 14:54 CK-MB (CK-2) Rel Index 0.7 (0-4) 01/16/22 14:54 Troponin T 0.460 ng/mL (0.00-0.029) H* D 01/16/22 14:54 Total Protein 6.1 g/dL (6.3-8.2) L 01/16/22 02:17 Albumin 3.5 g/dL (3.9-5) L 01/16/22 02:17 Albumin/Globulin Ratio 1.3 % 01/16/22 02:17 Triglycerides 78 mg/dL (2-149) 01/15/22 12:25 Cholesterol 126 mg/dL (50-199) 01/15/22 12:25 LDL Cholesterol Direct 63 mg/dL (50-130) 01/15/22 12:25 HDL Cholesterol 44 mg/dL (40-59) 01/15/22 12:25 Cholesterol/HDL Ratio 2.86 % 01/15/22 12:25 Urine Color Yellow (Yellow) 01/15/22 Unknown Urine Turbidity Clear (Clear) 01/15/22 Unknown Urine pH 7.0 (5.0-7.0) 01/15/22 Unknown Ur Specific [place] 1.017 (1.003-1.030) 01/15/22 Unknown Urine Protein 30 mg/dl mg/dL (Negative) 01/15/22 Unknown Urine Glucose (UA) Neg mg/dL (Negative) 01/15/22 Unknown Urine Ketones 20 mg/dL (Negative) 01/15/22 Unknown Urine Blood Sm (Negative) 01/15/22 Unknown Urine Nitrite Neg (Negative) 01/15/22 Unknown Urine Bilirubin Neg (Negative) 01/15/22 Unknown Urine Urobilinogen < 2.0 mg/dL (<2.0) 01/15/22 Unknown Ur Leukocyte Esterase Neg (Negative) 01/15/22 Unknown Urine WBC (Auto) < 1.0 /HPF (0.0-6.0) 01/15/22 Unknown Urine RBC (Auto) 4.0 /HPF (0.0-6.0) 01/15/22 Unknown Urine Mucus Few /HPF 01/15/22 Unknown [place]/IV: Voiding Method Toilet Active Medications - Current Medications Current Medications: Generic Name Dose Route Start Last Admin Trade Name Freq PRN Reason Stop Dose Admin Acetaminophen 650 mg 01/15/22 23:52 Acetaminophen 325 Mg Tab PO Q4H PRN Pain MILD(1-3)/Fever >100.5/MANZANO Famotidine 10 mg 01/16/22 10:00 01/16/22 21:28 Famotidine 10 Mg Tab PO 10 mg BID LEANNE Administration Sodium Chloride 1,000 mls @ 100 mls/hr 01/15/22 23:45 01/17/22 05:37 Nacl 0.9% 1000 Ml IV 100 mls/hr DIRECT LEANNE Administration Metoclopramide HCl 10 mg 01/15/22 23:52 Metoclopramide 10 Mg/2 Ml Inj IV Q6H PRN Nausea And Vomiting Morphine Sulfate 2 mg 01/15/22 23:52 Morphine 2 Mg/1 Ml Inj IV Q4H PRN Pain, Moderate (4-6) Ondansetron HCl 4 mg 01/15/22 23:52 Ondansetron 4 Mg/2 Ml Inj IV Q8H PRN Nausea And Vomiting Oxycodone/Acetaminophen 1 tab 01/15/22 23:52 Oxycodone /Acetaminophen 5-325mg Tab PO Q6H PRN Pain, Moderate (4-6) Sodium Chloride 10 ml 01/16/22 10:00 01/16/22 21:29 Sodium Chloride 0.9% 10 Ml Flush Syringe IV 10 ml BID LEANNE Administration Sodium Chloride 10 ml 01/15/22 23:52 Sodium Chloride 0.9% 10 Ml Flush Syringe IV PRN PRN LINE FLUSH
[2022-01-17 06:39] LABS: Hemoglobin 9.1 gm/dl (10.1-14.3)
[2022-01-17 06:50] LABS: Blood Urea Nitrogen 7 mg/dL (7-17); Calcium 7.7 mg/dL (8.4-10.2); Hemolysis Index 2
[2022-01-17 06:55] LABS: BUN/Creatinine Ratio 14
[2022-01-17] MEDS: FAMOTIDINE 10 MG TAB PO SCH ×2 (09:15→21:24)
[2022-01-17] MEDS ORDERED: POTASSIUM CHLORIDE 20 MEQ PACKET FEEDTUBE ONE (15:29)
[2022-01-18 07:52] LABS: BUN/Creatinine Ratio 7; Blood Urea Nitrogen 4 mg/dL (7-17); Calcium 8.3 mg/dL (8.4-10.2); Hemolysis Index 3
[2022-01-18] MEDS: FAMOTIDINE 10 MG TAB PO SCH (09:23)
[2022-01-18] MEDS: SODIUM CHLORIDE 0.9% 1000 ML 1,000 ML IV SCH (09:25)
--- NOTE | 2022-01-18 11:22 | Discharge Summary ---
Providers - Providers Date of Admission: 01/15/22 23:52 Date of discharge: 01/18/22 Attending physician: MARBIN DAVIDSON MD 01/16/22 00:02 Physical Therapy Evaluation and Treat [CONS] Routine Comment: Reason For Exam: Debility 01/18/22 11:16 Consult to Case Management [CONS] Routine Services Needed at Discharge: Other Comment:: Transportion back to longterm. Primary care physician: [facility] Hospitalization Reason for admission: Rhabdomyolysis, hypokalemia Condition: Stable Pertinent studies: Reviewed. Procedures: None. Hospital course: Patient is a 81-year-old female past medical history of hypertension, type 2 diabetes mellitus, and baseline dementia who presented from her longterm after ground-level fall. Patient was evaluated in the ED, she was found to be hemodynamically stable. She underwent multiple images that were found to be unremarkable for fracture or acute abnormality secondary to the fall. On admission the patient was found to have a creatinine kinase of 3000 with an elevated troponin. The patient was presumed to have rhabdomyolysis versus NSTEMI. Patient was admitted for further management for rhabdomyolysis and evaluation by PT/OT. Patient has been found to be negative for coronavirus 19. Patient is medically cleared for discharge. Disposition: 01 HOME / SELF CARE / HOMELESS Final Discharge Diagnosis (Prints w/discharge instructions): Rhabdomyolysis, elevated troponin, ground-level fall, contusion of left lower lip, hypokalemia, mild protein caloric malnutrition, dementia, hypertension. Time spent for discharge: 45 min Core Measure Documentation - Palliative Care Palliative Care/ Comfort Measures: Not Applicable - Core Measures Any of the following diagnoses?: none Exam - Constitutional Vitals: Temp Pulse Resp BP Pulse Ox 99.3 F 81 18 160/85 94 01/18/22 08:29 01/18/22 08:29 01/18/22 08:29 01/18/22 08:29 01/18/22 08:29 General appearance: Present: no acute distress, other (Baseline dementia) - EENT Eyes: Present: PERRL, EOM intact ENT: hearing intact, clear oral mucosa, dentition normal - Neck Neck: Present: supple, normal ROM - Respiratory Respiratory effort: normal Respiratory: bilateral: CTA - Cardiovascular Rhythm: regular Heart Sounds: Present: S1 & S2 - Extremities Extremities: no ischemia, pulses intact, pulses symmetrical, No edema, normal temperature, normal color Peripheral Pulses: within normal limits - Abdominal General gastrointestinal: Present: soft, non-tender, non-distended, normal bowel sounds Female genitourinary: Present: deferred - Rectal Rectal Exam: deferred - Integumentary Integumentary: Present: clear, warm, dry - Musculoskeletal Musculoskeletal: generalized weakness - Psychiatric Psychiatric: appropriate mood/affect, cooperative, other (Unable to fully assess given dementia) - Neurologic Neurologic: CNII-XII intact, other (Baseline dementia) - Allied Health Allied health notes reviewed: nursing Plan Activity: no restrictions Diet: low salt, diabetic Additional Instructions: Patient is a 81-year-old female past medical history of hypertension, type 2 diabetes mellitus, and baseline dementia who presented from her longterm after ground-level fall. Patient was evaluated in the ED, she was found to be hemodynamically stable. She underwent multiple images that were found to be unremarkable for fracture or acute abnormality secondary to the fall. On admission the patient was found to have a creatinine kinase of 3000 with an elevated troponin. The patient was presumed to have rhabdomyolysis versus NSTEMI. Patient was admitted for further management for rhabdomyolysis and evaluation by PT/OT. Patient has been found to be negative for coronavirus 19. Patient is medically cleared for discharge. Care Plan Goals: Patient is medically clear for discharge. Assessment: Patient is a 81-year-old female past medical history of hypertension, type 2 diabetes mellitus, and baseline dementia who presented from her longterm after ground-level fall. Patient was evaluated in the ED, she was found to be hemodynamically stable. She underwent multiple images that were found to be unremarkable for fracture or acute abnormality secondary to the fall. On admission the patient was found to have a creatinine kinase of 3000 with an elevated troponin. The patient was presumed to have rhabdomyolysis versus NSTEMI. Patient was admitted for further management for rhabdomyolysis and e valuation by PT/OT. Patient has been found to be negative for coronavirus 19. Patient is medically cleared for discharge. Follow up with: PRIMARY CAREMD [Primary Care Provider] - 7 Days Prescriptions: amLODIPine 10 mg PO QDAY #30 tablet Losartan [Cozaar] 25 mg PO QDAY #30 tablet
[2022-01-18] MEDS ORDERED: LOSARTAN 25 MG TAB PO SCH (12:00)
[2022-01-18] MEDS ORDERED: amLODIPine 10 MG TAB PO SCH (12:00)
[2022-01-18] MEDS ORDERED: CALCIUM CHLORIDE 1,000 MG in SODIUM CHLORIDE 0.9% 100 ML IV ONE (12:00)
[2022-01-18 17:03] VITALS: BP 138/74
== END 2022-01-18 19:56 | disposition home or self-care (01) | DRG 558 ==
LOC: ED 11:40 → 4A 23:52
PROVIDERS: ADMIT Internal Medicine; ATTEND Student in an Organized Health Care Education/Training Program
DX: M62.82 Rhabdomyolysis (principal); E44.1 Mild protein-calorie malnutrition; E87.6 Hypokalemia; Z20.822 Contact with and (suspected) exposure to COVID-19; S00.531A Contusion of lip, initial encounter; W18.39XA Other fall on same level, initial encounter; Y93.89 Activity, other specified; Y92.89 Other specified places as the place of occurrence of the external cause; Y99.8 Other external cause status; F03.90 Unspecified dementia, unspecified severity, without behavioral disturbance, psychotic disturbance, mood disturbance, and anxiety; E11.9 Type 2 diabetes mellitus without complications; I10 Essential (primary) hypertension; Z68.21 Body mass index [BMI] 21.0-21.9, adult; R77.8 Other specified abnormalities of plasma proteins
CPT/HCPCS: 36415; 70450; 71045; 72125; 73521; 80048; 80053; 80061; 81001; 82550; 82553; 84484; 85014; 85018; 85025; 85049; 85520; 85610; 85730; 93005; G0378; J3490; J1644; J3480; J7030; U0003